=== PATIENT | female | born 1990 | race Caucasian/White ===

== ENCOUNTER 2021-04-28 19:07 | Emergency (ER) | payer BC ==
[~2021-04-28] VITALS: Ht 157.5 cm; Wt 56.8 kg
[2021-04-28 19:33] VITALS: BP 137/93
[2021-04-28] MEDS ORDERED: IBUPROFEN 600 MG TABLET. PO ONE ×2 (21:30→21:50)
--- NOTE | 2021-04-28 21:32 | PHYS DOC ---
Past History Additional Past Medical Histor: POTS, MMH, CHRONIC BACK PAIN (ALEXANDRIA DE LEON APRN) Past Surgical History: Cholecystectomy, , Other Additional Past Surgical Histo: FUNDAL LIGATION (ALEXANDRIA DE LEON APRN) Alcohol Use: None (ALEXANDRIA DE LEON APRN) General Adult EDM: Chief Complaint: SORE THROAT HPI: HPI: Patient is a 30-year-old female who presents with sore throat and congestion x4 days. Patient states she has been running a fever at home. Temperature on arrival was 100.9. Heart rate is slightly elevated, 116. Patient states that she been able to eat and drink today and keep fluids down. Patient took Tylenol and ibuprofen today with some relief. Patient states that she has a history of POTS, fibromyalgia, anxiety. (ALEXANDRIA DE LEON APRN) Review of Systems: Review of Systems: ROS At least 10 ROS systems have been reviewed and are negative except as documented in the HPI. General: Negative except as outlined in HPI above. Skin: Negative except as outlined in HPI above. HEENT: Negative except as outlined in HPI above. Neck: Negative except as outlined in HPI above. Respiratory: Negative except as outlined in HPI above.. Cardiovascular: Negative except as outlined in HPI above. Abdomen: Negative except as outlined in HPI above. : Negative except as outlined in HPI above. Back/MSK: Negative except as outlined in HPI above. Neuro: Negative except as outlined in HPI above. Psych: Negative except as outlined in HPI above. (ALEXANDRIA DE LEON APRN) Allergies: Allergies: Allergies Coded Allergies Type Severity Reaction Last Updated Verified Penicillins Allergy Unknown 04/28/21 Yes (ALEXANDRIA DE LEON APRN) Physical Exam: PE: Constitutional: Well developed, well nourished, no acute distress, non-toxic appearance. [] HENT: bilateral external ears normal, oropharynx moist, oral exudates seen, rhinorrhea Eyes: PERRLA, EOMI, conjunctiva normal, no discharge. [] Neck: Normal range of motion, no tenderness, supple, no stridor. [] Cardiovascular:Heart rate regular rhythm, no murmur [] Lungs & Thorax: Bilateral breath sounds clear to auscultation [] Abdomen: Bowel sounds normal, soft, no tenderness, no masses, no pulsatile masses. [] Skin: Warm, dry, no erythema, no rash. [] Back: No tenderness, no CVA tenderness. [] Extremities: No tenderness, no cyanosis, no clubbing, ROM intact, no edema. [] Neurologic: Alert and oriented X 3, normal motor function, normal sensory function, no focal deficits noted. [] Psychologic: Affect normal, judgement normal, mood normal. [] (ALEXANDRIA DE LEON APRN) Current Patient Data: Labs: Laboratory Tests Test 04/28/21 20:15 Group A Streptococcus Rapid Negative (NEGATIVE) Vital Signs: Vital Signs Date Time Temp Pulse Resp B/P (MAP) Pulse Ox O2 Delivery O2 Flow Rate FiO2 04/28/21 19:33 100.9 116 18 137/93 (108) 97 Room Air (ALEXANDRIA DE LEON APRN) EKG: EKG: [] (ALEXANDRIA DE LEON APRN) Radiology/Procedures: Radiology/Procedures: [] (ALEXANDRIA DE LEON APRN) Heart Score: C/O Chest Pain: No Risk Factors: Risk Factors: DM, Current or recent (<one month) smoker, HTN, HLP, family history of CAD, obesity. Risk Scores: Score 0 - 3: 2.5% MACE over next 6 weeks - Discharge Home Score 4 - 6: 20.3% MACE over next 6 weeks - Admit for Clinical Observation Score 7 - 10: 72.7% MACE over next 6 weeks - Early Invasive Strategies (ALEXANDRIA DE LEON APRN) Course & Med Decision Making: Course & Med Decision Making Pertinent Labs and Imaging studies reviewed. (See chart for details) [] Nontoxic-appearing, 30-year-old female presents with sore throat and congestion for the last 4 days. Patient is febrile on arrival with. Fever treated with Motrin while in the ER. Patient has slightly sinus tachycardia, 116. Patient most likely has a elevated heart rate due to her temperature. Patient had a rapid strep completed which was negative. Patient is complaining of sore throat, oral exudates were seen on physical exam. Discussed all results with patient. Patient will be treated for streptococcal pharyngitis. Patient given 1 dose of antibiotic while in the emergency room. Patient sent home with an antibiotic. Patient also given dexamethasone and 600 mg of Motrin. (ALEXANDRIA DE LEON APRN) Dragon Disclaimer: Dragon Disclaimer: This electronic medical record was generated, in whole or in part, using a voice recognition dictation system. (ALEXANDRIA DE LEON APRN) Departure Departure: Impression: Primary Impression: Streptococcal pharyngitis Disposition: HOME / SELF CARE / HOMELESS Condition: STABLE Referrals: KYRA VILLA MD (PCP) Patient Instructions: Strep Throat, [id number] Additional Instructions: You are seen in the emergency room for sore throat, fever, congestion. You are being treated for streptococcal pharyngitis. You were given your first dose of antibiotic while in the ER. Your fever was also treated with Motrin. You were also given 1 dose of steroids to help with symptoms. Please make sure you continue to take Tylenol and ibuprofen at home for fever and chills. Ibuprofen will also help with discomfort. Please return to the emergency room if you have worsening symptoms such as shortness of breath, chest pain, uncontrollable vomiting. EMERGENCY DEPARTMENT GENERAL DISCHARGE INSTRUCTIONS Thank you for coming to [facility] (ED) today and trusting us with you care. We trust that you had a positivie experience in our Emergency Department. If you wish to speak to the department management, you may call the director at [phone]. YOUR FOLLOW UP INSTRUCTIONS ARE FOLLOWS: 1. Do you have a private Doctor? If you do not have a private doctor, please ask for a resource list of physicians or clinics that may be able to assist you with follow up care. 2. The Emergency Physician has interpreted your x-rays. The X-Ray specialist will also review them. If there is a change in the findings, you will be notified in 48 hours when at all possible. 3. A lab test or culture has been done, your results will be reviewed and you will be notified if you need a change in treatment. ADDITIONAL INSTRUCTIONS AND INFORMATION: 1. Your care today has been supervised by a physician who is specially trained in emergency care. Many problems require more than one evaluation for a complete diagnosis and treatment. We recommend that you schedule your follow up appointment as recommended to ensure complete treatment of you illness or injury. If you are unable to obtain follow up care and continue to have a problem, or if your condition worsens, we recommend that you return to the ED. 2. We are not able to safely determine your condition over the phone nor are we able to give sound medical advice over the phone. For these safety reasons, if you call for medical advice we will ask you to come to the ED for further evaluation. 3. If you have any questions regarding these discharge instructions please call the ED at [phone]. SAFETY INFORMATION: In the interest of safety, wellness, and injury prevention; we encourage you to wear your sealbelt, if you smoke; quite smoking, and we encourage family to use a protective helmet for bicycling and other sporting events that present an increased risk for head injury. IF YOUR SYMPTOMS WORSEN OR NEW SYMPTOMS DEVELOP, OR YOU HAVE CONCERNS ABOUT YOUR CONDITION; OR IF YOUR CONDITION WORSENS WHILE YOU ARE WAITING FOR YOUR FOLLOW UP APPOINTMENT; EITHER CONTACT YOUR PRIMARY CARE DOCTOR, THE PHYSICIAN WHOSE NAME AND NUMBER YOU WERE GIVEN, OR RETURN TO THE ED IMMEDIATELY. Scripts Amoxicillin (AMOXICILLIN) 500 Mg Capsule 1 CAP PO BID for infection for 10 Days, #20 CAP Prov: ALEXANDRIA DE LEON APRN 04/28/21 Attending Signature Attending Signature I have reviewed the PA/SHREDDING MACHINE TENDER's note and plan of care. I was available for consultation as needed during the patient's visit in the emergency department. I agree with the clinical impression, plan, and disposition. (SHAMEKA MONTELONGO DO) ALEXANDRIA DE LEON APRN Apr 28, 2021 21:32 SHAMEKA MONTELONGO DO Apr 29, 2021 03:01
[2021-04-28] MEDS ORDERED: AMOX500C PO (21:43)
[2021-04-28] MEDS ORDERED: IV NORMAL SALINE 1,000ML 1,000 ML IV ONE (21:45)
[2021-04-28] MEDS ORDERED: AMOXICILLIN 250 MG CAPSULE PO ONE (21:45)
[2021-04-28] MEDS ORDERED: DEXAMETHASONE 4 MG TABLET PO ONE (21:45)
[2021-04-28] MEDS ORDERED: DEXAMETHASONE 4 MG TABLET ONE (21:51)
== END 2021-04-28 21:59 | disposition home or self-care (01) ==
LOC: ER 19:07
DX: J02.0 Streptococcal pharyngitis (principal); Z88.0 Allergy status to penicillin; Z90.49 Acquired absence of other specified parts of digestive tract; Z20.822 Contact with and (suspected) exposure to COVID-19
CPT/HCPCS: 87070; 87880; 99284; C9803; J8540; U0003